=== PATIENT | female | born 1995 | race Hispanic/Latino ===

== ENCOUNTER 2019-06-27 14:14 | Outpatient (CLI) | payer MEDICAID ==
[2019-06-27 14:38] VITALS: BP 111/70
[2019-06-27 15:21] LABS: Bacteria,Urine 1+ /HPF (Negative); Bilirubin,Urine NEG (Negative); Blood,Urine NEG (Negative); Color,Urine Straw (Yellow); Protein,Urine <15 mg/dL mg/dL (Negative); Urobilinogen,Urine < 2.0 mg/dL (<2.0)
[2019-06-27] MEDS ORDERED: VISTARIL PO ONE (15:41)
[2019-06-27] MEDS ORDERED: LACTATED RINGERS 500 ML IV ONE (15:52)
[2019-06-27] MEDS ORDERED: LACTATED RINGERS 1,000 ML IV SCH (16:00)
== END 2019-06-27 17:05 | disposition home or self-care (01) ==
LOC: TRG 14:14
PROVIDERS: ATTEND Obstetrics & Gynecology
DX: O62.9 Abnormality of forces of labor, unspecified (principal); Z3A.34 34 weeks gestation of pregnancy
CPT/HCPCS: 59025; 81001; 96360; J7120; 96361; Q0177

== ENCOUNTER 2019-08-02 05:41 | Inpatient (IN) | payer MEDICAID ==
[2019-08-02] MEDS ORDERED: LACTATED RINGERS 1,000 ML IV ONE (05:52)
[2019-08-02 06:49] LABS: Hemoglobin 14.2 gm/dl (10.1-14.3); Mean Corpuscular HGB Conc 34 % (30-34); Mean Corpuscular Volume 90 fl (79-97); Platelet Count 219 K/mm3 (140-440); Red Blood Count 4.64 M/mm3 (3.65-5.03); Red Cell Distribution Width 13.5 % (13.2-15.2)
[2019-08-02] MEDS ORDERED: ANCEF/STERILE WATER 2 GM/20 ML 2 GM/20 ML SYRINGE IV NR (07:00)
[2019-08-02] MEDS ORDERED: PITOCin/NS 20 UNIT/1000ML DRIP 20 UNITS/1,000 ML BAG IV SCH ×2 (07:00→13:00)
[2019-08-02] MEDS ORDERED: LACTATED RINGERS 1,000 ML IV SCH (07:00)
[2019-08-02] MEDS ORDERED: PEPCID IV NR (07:30)
[2019-08-02] MEDS ORDERED: BICITRA PO NR (07:30)
[2019-08-02] MEDS ORDERED: REGLAN IV NR (07:30)
[2019-08-02 07:46] LABS: Basophils % (Auto) 0.3 % (0.0-1.8); Eosinophils # (Auto) 0.2 K/mm3 (0.0-0.4); Eosinophils % (Auto) 1.7 % (0.0-4.3); Hematocrit 40.9 % (30.3-42.9); Hemoglobin 13.9 gm/dl (10.1-14.3); Lymphocytes # (Auto) 1.7 K/mm3 (1.2-5.4); Lymphocytes % (Auto) 18.9 % (13.4-35.0); Mean Corpuscular HGB Conc 34 % (30-34); Mean Corpuscular Volume 90 fl (79-97); Monocytes # (Auto) 0.8 K/mm3 (0.0-0.8); Monocytes % (Auto) 9.4 % (0.0-7.3); Platelet Count 214 K/mm3 (140-440); Red Blood Count 4.53 M/mm3 (3.65-5.03); Red Cell Distribution Width 13.5 % (13.2-15.2)
--- NOTE | 2019-08-02 08:06 | Anesthesia Consultation ---
Anesthesia Consult and Med Hx Date of service: 08/02/19 - Airway Anesthetic Teeth Evaluation: Good ROM Head & Neck: Adequate Mental/Hyoid Distance: Adequate Mallampati Class: Class II Intubation Access Assessment: Good - Pulmonary Exam CTA: Yes - Cardiac Exam Cardiac Exam: RRR - Pre-Operative Health Status ASA Pre-Surgery Classification: ASA2 Proposed Anesthetic Plan: Spinal - Pulmonary Hx Asthma: No COPD: No Hx Pneumonia: No - Cardiovascular System Hx Hypertension: No - Central Nervous System Hx Seizures: No Hx Psychiatric Problems: No - Endocrine Hx Renal Disease: No Hx End Stage Renal Disease: No Hx Hypothyroidism: No Hx Hyperthyroidism: No - Hematic Hx Anemia: No Hx Sickle Cell Disease: No - Other Systems Hx Alcohol Use: No
--- NOTE | 2019-08-02 08:06 | Anesthesia Day of Surgery ---
Anesthesia Day of Surgery - Day of Surgery Patient Examined: Yes Patient H&P Reviewed: Yes Patient is NPO: Yes
[2019-08-02] MEDS ORDERED: ZOFRAN ONE (08:14)
[2019-08-02] MEDS ORDERED: DEXMEDETOMIDINE IV ONE (08:14)
--- NOTE | 2019-08-02 08:20 | History and Physical Report ---
History of Present Illness Date of examination: 08/02/19 Date of admission: 08/02/19 05:41 Chief complaint: My baby is breech History of present illness: Pt is a 24 year old who presents for elective at 39 weeks. Patient has had an uncomplicated course. SHe is GBS negative. Past History Past Medical History: no pertinent history Past Surgical History: no surgical history Social history: - Obstetrical History Expected Date of Delivery: 08/06/19 Actual Gestation: 39 Week(s) 3 Day(s) : 2 Number of Living Children: 0 Medications and Allergies Allergies Allergy/AdvReac Type Severity Reaction Status Date / Time No Known Allergies Allergy Unverified 06/27/19 14:52 Active Meds: Active Medications Citric Acid/Sodium Citrate (Bicitra) 30 ml PO ONCE NR Stop: 08/02/19 16:30 Last Admin: 08/02/19 07:33 Dose: 30 ml Documented by: Famotidine (Pepcid) 20 mg IV ONCE NR Stop: 08/02/19 16:30 Last Admin: 08/02/19 07:33 Dose: 20 mg Documented by: Hydromorphone HCl (Dilaudid) 0.5 mg IV Q5M PRN PRN Reason: Breakthrough Pain Stop: 08/02/19 15:00 Hydromorphone HCl (Dilaudid) 0.5 mg IV Q4H PRN PRN Reason: breakthrough pain > 7/10 Oxytocin/Sodium Chloride (Pitocin/Ns 20 Unit/1000ml Drip) 20 units in 1,000 mls @ 0 mls/hr IV TITR CRISTIAN Lactated Ringer's (Lactated Ringers) 1,000 mls @ 2,250 mls/hr IV PREOP CRISTIAN Stop: 08/03/19 07:27 Cefazolin Sodium (Ancef/Sterile Water 2 Gm/20 Ml) 2 gm in 20 mls @ 80 mls/hr IV PREOP NR; Protocol Stop: 08/02/19 16:00 Metoclopramide HCl (Reglan) 10 mg IV ONCE NR Stop: 08/02/19 16:30 Last Admin: 08/02/19 07:33 Dose: 10 mg Documented by: Naloxone HCl (Narcan 0.4 Mg/1 Ml) 0.2 mg IV Q2MIN PRN PRN Reason: Res Rate </= 8 or 02 SAT < 92% Ondansetron HCl (Zofran) 4 mg IV Q8H PRN PRN Reason: Nausea And Vomiting Promethazine HCl (Phenergan) 25 mg PO Q6H PRN PRN Reason: Nausea And Vomiting Promethazine HCl (Phenergan) 25 mg [place] Q6H PRN PRN Reason: Nausea And Vomiting Sodium Chloride (Sodium Chloride Flush Syringe 10 Ml) 10 ml IV PRN PRN PRN Reason: flush Review of Systems All systems: negative Gastrointestinal: other ( movement) - Physical Exam Breasts: Positive: deferred Cardiovascular: Regular rate, Normal S1, Normal S2 Lungs: Positive: Clear to auscultation, Normal air movement Abdomen: Positive: normal appearance, soft, normal bowel sounds. Negative: distention, tenderness Genitourinary (Female): Positive: normal external genitalia, normal perenium Vulva: both: normal Vagina: Positive: normal moisture. Negative: discharge Cervix: Negative: lesion, discharge Uterus: Positive: normal size, normal contour Adnexa: both: normal Anus/Rectum: Positive: normal perianal skin, heme negative. Negative: rectal mass, hemorrhoids Extremities: Deep Tendon Reflex Grade: Normal +2 Results Result Diagrams: 08/02/19 06:58 Abnormal lab results 08/02/19 Range/Units 06:58 [place] % (Auto) 9.4 H (0.0-7.3) % All other labs normal. Assessment and Plan IUP at 39.3 weeks for elective primary at term secondary to breech. Consents signed and placed on chart. Proceed with .
[2019-08-02] MEDS ORDERED: NARCAN 0.4 MG/1 ML IV PRN ×2 (08:30→13:00)
[2019-08-02] MEDS ORDERED: PHENERGAN PR PRN (08:30)
[2019-08-02] MEDS ORDERED: NACL 0.9% IR ONE (08:30)
[2019-08-02] MEDS ORDERED: PHENERGAN PO PRN (08:30)
[2019-08-02] MEDS ORDERED: TORADOL ONE (08:30)
[2019-08-02] MEDS ORDERED: WATER FOR IRRIG STERILE IR ONE (08:30)
[2019-08-02] MEDS ORDERED: ZOFRAN IV PRN (08:30)
[2019-08-02] MEDS ORDERED: DILAUDID IV PRN ×2 (08:30)
[2019-08-02] MEDS ORDERED: SODIUM CHLORIDE FLUSH SYRINGE 10 ML IV PRN ×2 (09:00→13:00)
[2019-08-02] MEDS ORDERED: DILAUDID ONE (09:17)
--- NOTE | 2019-08-02 09:39 | Post Anesthesia Evaluation ---
- Post Anesthesia Evaluation Patient Participated: Yes Airway Patent: Yes Stable Respiratory Function: Yes Nausea/Vomiting: No Temp > 96.8F: Yes Pain Manageable: Yes Adequeate Hydration: Yes Anesthesia Complications: No Block Receding Appropriately: Yes Patient on Ventilator: No
--- NOTE | 2019-08-02 09:48 | Procedure Note ---
OB Delivery Note - Delivery Date of Delivery: 08/02/19 Surgeon: JENY VOGT Estimated blood loss: 500cc - Section Preop diagnosis: breech Postop diagnosis: same section procedure: section, primary low transverse Disposition: PACU Complications: none Narrative: see op report - A at 1 minute: 9 at 5 minutes: 9 Infant Gender: Male (7 pounds 11 ounces)
[2019-08-02] MEDS ORDERED: MYLICON PO PRN (13:00)
[2019-08-02] MEDS ORDERED: LANSINOH TP PRN (13:00)
[2019-08-02] MEDS ORDERED: TUCKS PAD TP PRN (13:00)
[2019-08-02] MEDS ORDERED: TYLENOL PO PRN (13:00)
[2019-08-02] MEDS: TORADOL IV PRN (15:34)
[2019-08-02] MEDS: D5LR 1,000 ML IV SCH (17:38)
[2019-08-02] MEDS: PERCOCET 5/325 PO PRN (19:56)
[2019-08-02 20:45] LABS: Hematocrit 31.6 % (30.3-42.9); Hemoglobin 10.7 gm/dl (10.1-14.3)
[2019-08-02] MEDS ORDERED: MILK OF MAGNESIA PO PRN (22:00)
[2019-08-03] MEDS: D5LR 1,000 ML IV SCH (00:43)
[2019-08-03] MEDS: TORADOL IV PRN (03:31)
[2019-08-03] MEDS: PRENATAL VITAMIN PO SCH (11:03)
[2019-08-03] MEDS: FEOSOL PO SCH (11:03)
[2019-08-03] MEDS: IBUPROFEN PO PRN ×2 (11:05→17:27)
--- NOTE | 2019-08-03 20:40 | Operative Report ---
Operative Report Operative Report: The operative report for patient Serenity Galarza Date of service 08/02/2019 Preoperative diagnosis: Intrauterine at 39-2/7 weeks 2. Breech presentation Postoperative diagnosis: Same Procedure: Primary low transverse section Surgeon: Dr. Kamila Villanueva EBL: 500 Urine output: 200 mL IV fluids: 1100 mL Findings: Viable male in the jolie breech presentation. Weight 7 lbs. 11 oz. 3682 g Apgars 9 and 9]. Otherwise normal pelvic anatomy Specimens: None Complications: None Procedure: The patient was admitted to the OR with IV running and in place. She was properly identified as herself. She was given spinal anesthesia in the OR without difficulty. She was placed in the dorsal supine position with a leftward tilt. A Sheehan catheter was inserted. She was then prepped and draped in the normal sterile fashion. An Allis test was used to confirm adequate anesthesia. Once confirmed, the incision was made with the scalpel and carried to the underlying fascia using the scalpel and the Bovie. The fascia was incised in the midline and incision was extended bilaterally using the curved Mckeon scissors. The fascia was then dissected from the underlying rectus muscles in a series of sharp and blunt dissection using the Mckeon scissors. Muscles were in the in the midline sharply using Metzenbaum scissors and the peritoneum was entered into bluntly using the surgeon's fingers. A bladder blade was then placed into the incision to protect the bladder. Following this the bladder flap was created. Hysterotomy incision was then made in the scalpel. Upon uterine entry, the amniotic sac was ruptured for clear fluid. The was then delivered in the jolie breech presentation. His buttocks was delivered first followed by his legs that were then wrapped with a moist blue towel. This was followed by his torso, shoulders then finally his head was delivered. His mouth and nose were suctioned on the field. The cord was clamped and cut and he was handed to the waiting NICU personnel. The uterus was then exteriorized and cleared of all clots and debris. The hysterotomy incision was then closed in a running locked fashion using 0 Vicryl. The abdomen was then copiously irrigated with warm normal saline. Following this the uterus was replaced into the abdominal cavity. At this point the muscles were reapproximated in the midline using individual sutures of 0 Vicryl. Following this the fascia was closed in a running fashion using 0 Vicryl. Tissue was then copiously irrigated. Skin was closed in a running fashion using 3-0 Monocryl. The sponge lap needle and instrument counts were correct 2. The patient tolerated the procedure well. She was taken to recovery in stable condition.
--- NOTE | 2019-08-03 20:42 | Progress Note ---
Assessment and Plan POD 1 s/p ltcs for breech. Doing well. Pain well controlled. Ambulation encouraged. Continue routine care. Subjective - Subjective Date of service: 08/03/19 Principal diagnosis: breech, IUP at term Interval history: Pt is a 24 year old who presents for elective at 39 weeks. Patient has had an uncomplicated course. SHe is GBS negative. Patient reports: appetite normal, voiding normally, pain well controlled, ambulating normally [place]: doing well Objective - Vital Signs Latest vital signs: Vital Signs Temp Pulse Resp BP Pulse Ox 08/03/19 15:42 98.3 F 89 20 110/70 100 08/03/19 11:05 18 08/03/19 08:09 98.1 F 77 20 101/64 96 08/03/19 05:38 98.9 F 85 20 104/61 100 08/03/19 01:16 98.6 F 76 20 95/64 100 08/02/19 20:52 98.9 F 87 18 98/56 97 Intake and Output 08/03/19 08/03/19 08/03/19 06:59 14:59 22:59 Intake Total 1245.417 720 120 Output Total 1999 1600 Balance -754.583 -880 120 Intake: IV 885.417 D5lr 1,000 ml @ 125 mls/ 885.417 hr IV DIRECT CRISTIAN Rx#: [id number] Oral 360 720 120 Output: Urine 1999 1600 Indwelling Catheter 2000 Void 1600 Other: Total, Intake Amount 120 240 120 Total, Output Amount 800 800 # Voids Void 1 - Exam Breasts: Present: deferred Cardiovascular: Present: Regular rate, Normal S1, Normal S2 Lungs: Present: Clear to auscultation, Normal air movement Abdomen: Present: normal appearance, soft, normal bowel sounds Vulva: both: normal Uterus: Present: normal, firm Extremities: Present: normal Deep Tendon Reflex Grade: Normal +2 Incision: Present: normal, dry, intact, dressed
[2019-08-03] MEDS: PERCOCET 5/325 PO PRN (21:05)
[2019-08-03] MEDS: COLACE PO SCH (21:06)
[2019-08-04] MEDS: IBUPROFEN PO PRN ×2 (04:23→11:47)
[2019-08-04] MEDS ORDERED: BOOSTRIX IM ONE (04:34)
[2019-08-04] MEDS: PERCOCET 5/325 PO PRN (05:45)
[2019-08-04 08:41] VITALS: BP 100/57
[2019-08-04] MEDS: PRENATAL VITAMIN PO SCH (09:31)
[2019-08-04] MEDS: COLACE PO SCH (09:31)
[2019-08-04] MEDS: FEOSOL PO SCH (09:32)
--- NOTE | 2019-08-04 13:23 | Progress Note ---
Assessment and Plan pod 2 S/P LTCS. DOING WELL. PT READY FOR DISCHARGE ON TODAY. Subjective - Subjective Date of service: 08/04/19 Principal diagnosis: breech, IUP at term Interval history: Pt is a 24 year old who presents for elective at 39 weeks. Patient has had an uncomplicated course. SHe is GBS negative. Patient reports: appetite normal, voiding normally, pain well controlled, ambulating normally [place]: doing well Objective - Vital Signs Latest vital signs: Vital Signs Temp Pulse Resp BP BP Pulse Ox 08/04/19 07:19 97.6 F 69 18 100/57 08/04/19 01:35 97.9 F 67 20 107/65 98 08/03/19 15:42 98.3 F 89 20 110/70 100 Intake and Output 08/03/19 08/04/19 08/04/19 22:59 06:59 14:59 Intake Total 360 480 480 Balance 360 480 480 Intake: Oral 360 480 480 Other: Total, Intake Amount 240 240 480 # Voids Void 1 1 - Exam Cardiovascular: Present: Regular rate, Normal S1, Normal S2 Lungs: Present: Clear to auscultation, Normal air movement Abdomen: Present: normal appearance, soft, normal bowel sounds Uterus: Present: normal, fundal height below umbilicus Extremities: Present: normal Incision: Present: normal, dry, intact
--- NOTE | 2019-08-04 13:27 | Discharge Summary ---
Providers - Providers Date of Admission: 08/02/19 05:41 Date of discharge: 08/04/19 Attending physician: JENY VOGT Primary care physician: JENY VOGT Hospitalization Reason for admission: section Delivery: Procedure: primary low transverse Episiotomy: none Incision: normal, dry, intact Other procedures: none complications: none Discharge diagnosis: IUP at term delivered baby: male Hospital course: UNREMARKABLE Condition at discharge: Good Disposition: DC-01 TO HOME OR SELFCARE Plan - Discharge Medications Prescriptions: Docusate Sodium [Colace] 100 mg PO BID PRN #60 capsule PRN Reason: Constipation Ibuprofen [Motrin] 800 mg PO Q8HR PRN #40 tablet PRN Reason: Pain, Moderate (4-6) oxyCODONE /ACETAMINOPHEN [Percocet 5/325] 2 tab PO Q6HR PRN #30 tablet PRN Reason: Pain - Provider Discharge Summary Activity: routine, no sex for 6 weeks, no heavy lifting 4 weeks, no strenuous exercise Diet: routine Instructions: routine Additional instructions: [] Smoking cessation referral if applicable(refer to patient education folder for contact #) [] Refer to [facility] Booklet Call your doctor immediately for: * Fever > 100.5 * Heavy vaginal bleeding ( >1 pad per hour) * Severe persistent headache * Shortness of breath * Reddened, hot, painful area to leg or breast * Drainage or odor from incision. * Keep incision clean and dry at all times and follow doctor's instructions regarding bathing/showering - Follow up plan Follow up: JENY VOGT MD [Primary Care Provider] - 14 Days
== END 2019-08-04 16:05 | disposition home or self-care (01) | DRG 766 ==
LOC: APU 05:41 → OB 11:08
PROVIDERS: ADMIT Obstetrics & Gynecology; ATTEND Obstetrics & Gynecology
PROC: 10D00Z1 Extraction of Products of Conception, Low, Open Approach (ICD-10-PCS; principal; 2019-08-02)
PROC: 3E0234Z Introduction of Serum, Toxoid and Vaccine into Muscle, Percutaneous Approach (ICD-10-PCS; 2019-08-04)
DX: O32.1XX0 Maternal care for breech presentation, not applicable or unspecified (principal); Z3A.39 39 weeks gestation of pregnancy; Z37.0 Single live birth
CPT/HCPCS: 36415; 85014; 85018; 85025; 85027; 86592; 86850; 86900; 86901; 90471; 90715; G0378; A6250; J0690; J1170; J1885; J2405; J2590; J2765; J3490; J7120; J7121